=== PATIENT | female | born 1990 | race Caucasian/White ===

== ENCOUNTER 2017-06-29 12:18 | Emergency (ER) | payer MEDICAID ==
--- NOTE | 2017-06-29 12:48 | ER Document Report ---
ED Medical Screen (RME) - General Chief Complaint: Abdominal Pain Stated Complaint: HIT STOMACH 11 WKS PREG Time Seen by Provider: 06/29/17 12:43 Notes: Patient is approximately 11 weeks . She was moving a table which hit the edge of a door and pushed the table into her left abdomen about an hour and a half ago. She has pain to the left side of her abdomen towards the left upper quadrant and she started vomiting soon after this incident occurred. She still points to mid left abdomen as the location of her most pain. No right- sided abdominal pain at all. Has not had any vaginal bleeding. Patient has had vomiting throughout her attributed to the and has some "morning sickness" vomiting this morning prior to this injury. Patient has been diagnosed with systemic lupus and declines to take any antinausea medicines because she is tried them all and they either do not work or she is concerned about the safety (Zofran) based upon TV commercials. Patient does not have any vaginal bleeding. Vital signs are all essentially normal. Abdomen is soft and very minimally tender in the mid left region. I do not see indications for an ultrasound at this time. The patient says that she has a history of a left ovarian cyst and is concerned she may have ruptured it. However, her abdominal exam is not consistent with a ruptured ovarian cyst. TRAVEL OUTSIDE OF THE [place] IN LAST 30 DAYS: No - Related Data Allergies/Adverse Reactions: cefaclor [From Ceclor] Allergy (Severe, Verified 06/29/17 12:22) cardica arrest Penicillins Allergy (Severe, Verified 06/29/17 12:22) Cardiac arrest Home Medications: Current Home Medications Albuterol Sulfate [Proair Respiclick] 90 mcg IH QID 06/29/17 [History] Vit Calc,Iron,Folic [ Vitamins] 1 tab PO DAILY 06/29/17 [ History] Past Medical History - Social History Frequency of alcohol use: Rare Drug Abuse: None Pulmonary Medical History: Reports: Hx Asthma Renal/ Medical History: Denies: Hx Peritoneal Dialysis Musculoskeltal Medical History: Reports Hx Arthritis - RA, Reports Hx Musculoskeletal Deformity - scoliosis Past Surgical History: Reports: Hx Cardiac Surgery, Hx Section, Hx Gynecologic Surgery - D&C, Hx Tonsillectomy - Immunizations Immunizations up to date: Yes Hx Diphtheria, Pertussis, Tetanus Vaccination: Yes - <2 yr Physical Exam - Vital signs Vitals: Temp Pulse Resp BP Pulse Ox 97.9 F 86 18 119/72 100 06/29/17 12:21 06/29/17 12:21 06/29/17 12:21 06/29/17 12:21 06/29/17 12:21 Course - Vital Signs Vital signs: Temp Pulse Resp BP Pulse Ox 97.9 F 86 18 119/72 100 06/29/17 12:21 06/29/17 12:21 06/29/17 12:21 06/29/17 12:21 06/29/17 12:21
[2017-06-29 13:14] LABS: ABSOLUTE BASOPHILS # (AUTO) 0.1 10^3/uL (0.0-0.2); ABSOLUTE EOSINOPHILS # (AUTO) 0.1 10^3/uL (0.0-0.6); ABSOLUTE LYMPHOCYTES (AUTO) 1.9 10^3/uL (0.5-4.7); ABSOLUTE MONOCYTES (AUTO) 0.6 10^3/uL (0.1-1.4); ABSOLUTE NEUT (AUTO) 7.8 10^3/uL (1.7-8.2); BASOPHILS % (AUTO) 0.8 % (0-2); EOSINOPHILS % (AUTO) 1.2 % (0-6); HEMATOCRIT 40.6 % (36.0-47.0); HEMOGLOBIN 13.9 g/dL (12.0-15.5); HGB HCT DIFFERENCE 1.1; LYMPHOCYTES % (AUTO) 17.7 % (13-45); MEAN CORPUSCULAR HGB CONC 34.1 g/dL (32.0-36.0); MEAN CORPUSCULAR VOLUME 91 fl (80-97); MONOCYTES % (AUTO) 5.3 % (3-13); RED BLOOD COUNT 4.48 10^6/uL (3.72-5.28); RED CELL DISTRIBUTION WIDTH 13.1 % (11.5-14.0); WHITE BLOOD COUNT 10.5 10^3/uL (4.0-10.5)
[2017-06-29 13:21] LABS: APPEARANCE,URINE CLEAR; BILIRUBIN,URINE NEGATIVE (NEGATIVE); GLUCOSE, URINE NEGATIVE (NEGATIVE); KETONES,URINE TRACE mg/dL (NEGATIVE); LEUKOCYTE ESTERASE,URINE NEGATIVE (NEGATIVE); NITRITE,URINE NEGATIVE (NEGATIVE); PROTEIN,URINE NEGATIVE (NEGATIVE); URINE SPECIFIC GRAVITY 1.004; UROBILINOGEN,URINE NEGATIVE mg/dL (<2.0)
--- NOTE | 2017-06-29 15:05 | ER Document Report ---
ED General - General Chief Complaint: Abdominal Pain Stated Complaint: HIT STOMACH 11 WKS PREG Time Seen by Provider: 06/29/17 12:43 Mode of Arrival: Ambulatory Information source: Patient Notes: 26-year-old female who is 11 weeks presents with complaints of abdominal pain after striking the side of the table that she was lifting. Patient denies any vaginal bleeding denies any significant pain. Patient is concerned about her . Patient's blood type is O+ and she states with her 3 previous pregnancies she has never received RhoGam TRAVEL OUTSIDE OF THE [place] IN LAST 30 DAYS: No - HPI Onset: Just prior to arrival Onset/Duration: Sudden Quality of pain: Achy Severity: Mild Pain Level: 1 Associated symptoms: Other Exacerbated by: Denies Relieved by: Denies Similar symptoms previously: No Recently seen / treated by doctor: No - Related Data Allergies/Adverse Reactions: cefaclor [From Ceclor] Allergy (Severe, Verified 06/29/17 12:22) cardica arrest Penicillins Allergy (Severe, Verified 06/29/17 12:22) Cardiac arrest Home Medications: Current Home Medications Albuterol Sulfate [Proair Respiclick] 90 mcg IH QID 06/29/17 [History] Vit Calc,Iron,Folic [ Vitamins] 1 tab PO DAILY 06/29/17 [ History] Past Medical History - Social History Smoking Status: Current Some Day Smoker Cigarette use (# per day): Yes Chew tobacco use (# tins/day): No Smoking Education Provided: Yes - Patient counselled regarding cessation for 4 minutes Frequency of alcohol use: Rare Drug Abuse: None Family History: Arthritis, CAD - valve, Hyperlipidemia, Hypertension, Malignancy Patient has suicidal ideation: No Patient has homicidal ideation: No Pulmonary Medical History: Reports: Hx Asthma Renal/ Medical History: Denies: Hx Peritoneal Dialysis Musculoskeltal Medical History: Reports Hx Arthritis - RA, Reports Hx Musculoskeletal Deformity - scoliosis Past Surgical History: Reports: Hx Cardiac Surgery, Hx Section, Hx Gynecologic Surgery - D&C, Hx Tonsillectomy - Immunizations Immunizations up to date: Yes Hx Diphtheria, Pertussis, Tetanus Vaccination: Yes - <2 yr Review of Systems - Review of Systems Notes: REVIEW OF SYSTEMS: CONSTITUTIONAL : Denies fever, chills, or sweats. Denies recent illness. EENT: Denies eye, ear, throat, or mouth pain or symptoms. Denies nasal or sinus congestion or discharge. Denies throat, tongue, or mouth swelling or difficulty swallowing. CARDIOVASCULAR: Denies chest pain. Denies palpitations or racing or irregular heart beat. Denies ankle edema. RESPIRATORY: Denies cough, cold, or chest congestion. Denies shortness of breath, difficulty breathing, or wheezing. GASTROINTESTINAL: Admits to abdominal pain GENITOURINARY: Denies difficulty urinating, painful urination, burning, frequency, blood in urine, or discharge. FEMALE GENITOURINARY: Denies vaginal bleeding, heavy or abnormal periods, irregular periods. Denies vaginal discharge or odor. MUSCULOSKELETAL: Denies back or neck pain or stiffness. Denies joint pain or swelling. SKIN: Denies rash, lesions or sores. HEMATOLOGIC : Denies easy bruising or bleeding. LYMPHATIC: Denies swollen, enlarged glands. NEUROLOGICAL: Denies confusion or altered mental status. Denies passing out or loss of consciousness. Denies dizziness or lightheadedness. Denies headache. Denies weakness or paralysis or loss of use of either side. Denies problems with gait or speech. Denies sensory loss, numbness, or tingling. Denies seizures. PSYCHIATRIC: Denies anxiety or stress. Denies depression, suicidal ideation, or homicidal ideation. ALL OTHER SYSTEMS REVIEWED AND NEGATIVE. PHYSICAL EXAMINATION: GENERAL: Well-appearing, well-nourished and in no acute distress. HEAD: Atraumatic, normocephalic. EYES: Pupils equal round and reactive to light, extraocular movements intact, conjunctiva are normal. ENT: Nares patent, oropharynx clear without exudates. Moist mucous membranes. NECK: Normal range of motion, supple without lymphadenopathy LUNGS: Breath sounds clear to auscultation bilaterally and equal. No wheezes rales or rhonchi. HEART: Regular rate and rhythm without murmurs ABDOMEN: Soft, nontender, nondistended abdomen. No guarding, no rebound. No masses appreciated. Female : deferred Musculoskeletal: Normal range of motion, no pitting or edema. No cyanosis. NEUROLOGICAL: Cranial nerves grossly intact. Normal speech, normal gait. Normal sensory, motor exams PSYCH: Normal mood, normal affect. SKIN: Warm, Dry, normal turgor, no rashes or lesions noted. Dictation was performed using [employer] recognition software Physical Exam - Vital signs Vitals: Temp Pulse Resp BP Pulse Ox 97.9 F 86 18 119/72 100 06/29/17 12:21 06/29/17 12:21 06/29/17 12:21 06/29/17 12:21 06/29/17 12:21 Course - Re-evaluation Re-evalutation: 06/29/17 22:44 Lab work noted no significant abnormality, patient's ultrasound was consistent with a 11 week 5 day heart rate 155, patient overall looks well is in no distress, this is a nonviable at this time and even if there was a threatened miscarriage no intervention could be performed and patient was made aware of this Nonetheless at this time child looks well is in no distress and patient will be discharged home, given that her blood type is O+ she does not require RhoGam After performing a Medical Screening Examination, I estimate there is LOW risk for ACUTE APPENDICITIS, BOWEL OBSTRUCTION, ACUTE CHOLECYSTITIS, PERFORATED DIVERTICULITIS, INCARCERATED HERNIA, PANCREATITIS, PELVIC INFLAMMATORY DISEASE, PERFORATED ULCER, ECTOPIC , or TUBO-OVARIAN ABSCESS, thus I consider the discharge disposition reasonable. Also, there is no evidence or peritonitis , sepsis, or toxicity. I have reevaluated this patient multiple times and no significant life threatening changes are noted. The patient and I have discussed the diagnosis and risks, and we agree with discharging home with close follow-up with the understanding that symptoms and presentations can change. We also discussed returning to the Emergency Department immediately if new or worsening symptoms occur. We have discussed the symptoms which are most concerning (e.g., bloody stool, fever, changing or worsening pain, vomiting) that necessitate immediate return. - Vital Signs Vital signs: Temp Pulse Resp BP Pulse Ox 99.1 F 71 18 102/64 100 06/29/17 15:52 06/29/17 15:52 06/29/17 15:52 06/29/17 15:52 06/29/17 15:52 - Laboratory Result Diagrams: 06/29/17 13:00 Laboratory results interpreted by me: 06/29/17 06/29/17 13:00 13:00 Beta HCG, Quant 51378.00 H Urine Ketones TRACE H - Diagnostic Test Radiology reviewed: Image reviewed, Reports reviewed Discharge - Discharge Clinical Impression: Abdominal pain affecting Condition: Stable Disposition: HOME, SELF-CARE Instructions: Abdominal Pain ([facility]) Additional Instructions: Follow up with your physician tomorrow for further care or return to the ED IMMEDIATELY if symptoms worsen or new concerns occur. If you cannot afford to follow up with your primary care physician a list of low cost clinics have been provided at the end of your discharge papers as well. Referrals: REX ZALDIVAR NP-C [Primary Care Provider] - Follow up as needed
--- NOTE | 2017-06-29 15:14 | RADIOLOGY REPORT (SQ) ---
EXAM DESCRIPTION: U/S [id number] TRNABD 1GES W/ODOP COMPLETED DATE/TIME: 06/29/2017 3:03 pm REASON FOR STUDY: 11 week old, abd pain COMPARISON: None. TECHNIQUE: Transabdominal static and realtime grayscale images acquired of the pelvis. Additional se lected spectral and color Doppler images recorded. All images stored on PACs. bHCG: Not available. LIMITATIONS: None. FINDINGS: FETUS: Living intrauterine . EGA: 11 weeks 5 days ELIEZER: 01/13/2018 FHR: 155 beats per minute. SUBCHORIONIC BLEED: No significant subchorionic hemorrhage is seen. SIZE OF BLEED: Not applicable. UTERUS: No masses. No anomalies. CERVICAL LENGTH: 2.3 cm. Closed. RIGHT ADNEXA: Normal ovary with normal vascular flow. 2.2 x 1.8 x 1.8 cm. No adnexal free fluid. No adnexal masses. LEFT ADNEXA: Normal ovary with normal vascular flow. 2.1 x 2.2 x 1.6 cm. No adnexal free fluid. No adnexal masses. FREE FLUID: None. OTHER: No other significant finding. IMPRESSION: LIVING INTRAUTERINE . EGA 11 weeks 5 days Trimester of : First - 0 to 13 weeks. TECHNICAL DOCUMENTATION: JOB ID: [id number] [employer]- All Rights Reserved
[2017-06-29 15:53] VITALS: BP 102/64
== END 2017-06-29 15:52 | disposition home or self-care (01) ==
LOC: ER 12:18
DX: O26.91 Pregnancy related conditions, unspecified, first trimester (principal); R10.9 Unspecified abdominal pain; O99.331 Smoking (tobacco) complicating pregnancy, first trimester; F17.210 Nicotine dependence, cigarettes, uncomplicated; Z3A.11 11 weeks gestation of pregnancy; Z88.0 Allergy status to penicillin
CPT/HCPCS: 36415; 76801; 81001; 84702; 85025; 99284

== ENCOUNTER 2019-09-30 20:42 | Emergency (ER) | payer MEDICAID ==
[2019-09-30] MEDS ORDERED: ONDANSETRON 4 MG TAB.RAPDIS PO ONE (21:17)
[2019-09-30] MEDS ORDERED: HYDROCODONE/ACETAMINOPHEN 5-325 MG TABLET PO ONE (21:18)
--- NOTE | 2019-09-30 21:22 | ER Document Report ---
ED Medical Screen (RME) - General Stated Complaint: ABDOMINAL PAIN Time Seen by Provider: 09/30/19 21:11 Primary Care Provider: REX ZALDIVAR NP-C [Primary Care Provider] - Follow up as needed Notes: Patient is a 29-year-old female who presents emergency department with a chief complaint of upper abdominal pain. Patient states that she has had her symptoms on and off for the past 6 months. States it feels like she has a "boa constrict or around my upper abdomen" and is "squeezing her." She admits to losing about 20 pounds unintentionally due to the nausea and vomiting. Patient is supposed to follow-up with GI, but is waiting for the referral. Exam: Tender mid upper abdomen. I have greeted and performed a rapid initial assessment of this patient. A comprehensive ED assessment and evaluation of the patient, analysis of test results and completion of medical decision making process will be conducted by an additional ED providers. TRAVEL OUTSIDE OF THE [place] IN LAST 30 DAYS: No - Related Data Allergies/Adverse Reactions: cefaclor [From Ceclor] Allergy (Severe, Verified 06/29/17 12:22) cardica arrest Penicillins Allergy (Severe, Verified 06/29/17 12:22) Cardiac arrest Past Medical History Pulmonary Medical History: Reports: Hx Asthma Renal/ Medical History: Denies: Hx Peritoneal Dialysis Musculoskeltal Medical History: Reports Hx Arthritis - RA, Reports Hx Musculoskeletal Deformity - scoliosis Past Surgical History: Reports: Hx Cardiac Surgery, Hx Section, Hx Gynecologic Surgery - D&C, Hx Tonsillectomy - Immunizations Immunizations up to date: Yes Hx Diphtheria, Pertussis, Tetanus Vaccination: Yes - <2 yr Physical Exam - Vital signs Vitals: Temp Pulse Resp BP Pulse Ox 98.1 F 77 20 121/77 100 09/30/19 20:45 09/30/19 20:45 09/30/19 20:45 09/30/19 20:45 09/30/19 20:45 Course - Vital Signs Vital signs: Temp Pulse Resp BP Pulse Ox 98.1 F 77 20 121/77 100 09/30/19 20:45 09/30/19 20:45 09/30/19 20:45 09/30/19 20:45 09/30/19 20:45 Doctor's Discharge - Discharge Referrals: KAYLEY,REX, CHEESE GRADER-C [Primary Care Provider] - Follow up as needed
--- NOTE | 2019-09-30 22:11 | RADIOLOGY REPORT (SQ) ---
EXAM DESCRIPTION: US ABDOMEN LIMITED COMPLETED DATE/TME: 09/30/2019 21:18 CLINICAL HISTORY: 29 years, Female, abdominal pain Findings: Aorta and IVC are within normal limits. Pancreas is within normal limits. Liver is within normal limits with no focal lesions. Portal vein is patent with hepatopedal flow. Gallbladder is contracted and appears unremarkable with no evidence for calculus, wall thickening or pericholecystic fluid. No significant biliary dilatation with CBD measuring 5 mm. No right hydronephrosis. No right upper quadrant ascites. IMPRESSION: No evidence for cholelithiasis or cholecystitis.
[2019-09-30 23:18] LABS: ABSOLUTE BASOPHILS # (AUTO) 0.1 10^3/uL (0.0-0.2); ABSOLUTE EOSINOPHILS # (AUTO) 0.3 10^3/uL (0.0-0.6); ABSOLUTE LYMPHOCYTES (AUTO) 2.4 10^3/uL (0.5-4.7); ABSOLUTE MONOCYTES (AUTO) 0.7 10^3/uL (0.1-1.4); ABSOLUTE NEUT (AUTO) 9.4 10^3/uL (1.7-8.2); APPEARANCE,URINE CLEAR; BASOPHILS % (AUTO) 0.6 % (0-2); BILIRUBIN,URINE NEGATIVE (NEGATIVE); COLOR,URINE YELLOW; EOSINOPHILS % (AUTO) 2.1 % (0-6); GLUCOSE, URINE NEGATIVE (NEGATIVE); HEMATOCRIT 39.1 % (36.0-47.0); HEMOGLOBIN 13.4 g/dL (12.0-15.5); KETONES,URINE NEGATIVE (NEGATIVE); LEUKOCYTE ESTERASE,URINE NEGATIVE (NEGATIVE); LYMPHOCYTES % (AUTO) 18.4 % (13-45); MEAN CORPUSCULAR HEMOGLOBIN 31.2 pg (27.0-33.4); MEAN CORPUSCULAR HGB CONC 34.3 g/dL (32.0-36.0); MEAN CORPUSCULAR VOLUME 91 fl (80-97); MONOCYTES % (AUTO) 5.5 % (3-13); NITRITE,URINE NEGATIVE (NEGATIVE); PLATELET COUNT 257 10^3/uL (150-450); PROTEIN,URINE NEGATIVE (NEGATIVE); RED BLOOD COUNT 4.29 10^6/uL (3.72-5.28); RED CELL DISTRIBUTION WIDTH 13.1 % (11.5-14.0); SEGMENTED NEUTROPHILS % (AUTO) 73.4 % (42-78); TOTAL CELLS COUNTED % (AUTO) 100 %; URINE SPECIFIC GRAVITY 1.006; UROBILINOGEN,URINE NEGATIVE mg/dL (<2.0); WHITE BLOOD COUNT 12.9 10^3/uL (4.0-10.5)
[2019-09-30 23:32] LABS: ALBUMIN 4.2 g/dL (3.5-5.0); ALKALINE PHOSPHATASE 90 U/L (38-126); ANION GAP 9 (5-19); ASPARTATE AMINO TRANSFERASE 20 U/L (14-36); BILIRUBIN,DIRECT 0.3 mg/dL (0.0-0.4); BILIRUBIN,TOTAL 0.3 mg/dL (0.2-1.3); BLOOD UREA NITROGEN 8 mg/dL (7-20); CALCIUM 9.6 mg/dL (8.4-10.2); CARBON DIOXIDE 26 mmol/L (22-30); CHLORIDE 104 mmol/L (98-107); GLUCOSE 90 mg/dL (75-110); POTASSIUM 4.3 mmol/L (3.6-5.0); TOTAL PROTEIN 7.1 g/dL (6.3-8.2)
[2019-10-01] MEDS ORDERED: HYDROCODONE/ACETAMINOPHEN 5-325 MG (6 TAB/ER DISP) PO PRN (03:53)
--- NOTE | 2019-10-01 03:58 | ER Document Report ---
ED GI/ - General Chief Complaint: Abdominal Pain Stated Complaint: ABDOMINAL PAIN Time Seen by Provider: 09/30/19 21:11 Primary Care Provider: [facility] [Provider Group] - Follow up as needed CHERRY PARKS MD [ACTIVE STAFF] - Follow up tomorrow Notes: Patient is a 29-year-old female that comes to the emergency department for chief complaint of upper abdominal pain. She states that for the past 2 months she has intermittent symptoms of sharp squeezing pain in the upper abdomen especially after eating, she has noticed this would be for the most. She states that she has been eating less and has been losing weight as a result. She denies vomiting, black or bloody stools, fever. She states she has a history of lupus on no medications and C-sections. She denies daily medications but takes Midol and ibuprofen frequently, she admits to very frequent caffeine, denies recreational drugs except marijuana. TRAVEL OUTSIDE OF THE [place] IN LAST 30 DAYS: No - Related Data Allergies/Adverse Reactions: cefaclor [From Ceclor] Allergy (Severe, Verified 06/29/17 12:22) cardica arrest Penicillins Allergy (Severe, Verified 06/29/17 12:22) Cardiac arrest Past Medical History - General Information source: Patient - Social History Smoking Status: Current Every Day Smoker Frequency of alcohol use: Occasional Drug Abuse: None Lives with: Family Family History: Arthritis, CAD - valve, Hyperlipidemia, Hypertension, Malignancy Patient has suicidal ideation: No Patient has homicidal ideation: No Pulmonary Medical History: Reports: Hx Asthma Renal/ Medical History: Denies: Hx Peritoneal Dialysis Musculoskeletal Medical History: Reports Hx Arthritis - RA, Reports Hx Musculoskeletal Deformity - scoliosis Past Surgical History: Reports: Hx Cardiac Surgery, Hx Section, Hx Gynecologic Surgery - D&C, Hx Tonsillectomy - Immunizations Immunizations up to date: Yes Hx Diphtheria, Pertussis, Tetanus Vaccination: Yes - <2 yr Review of Systems - Review of Systems Constitutional: No symptoms reported EENT: No symptoms reported Cardiovascular: No symptoms reported Respiratory: No symptoms reported Gastrointestinal: See HPI Genitourinary: No symptoms reported Female Genitourinary: No symptoms reported Musculoskeletal: No symptoms reported Skin: No symptoms reported Hematologic/Lymphatic: No symptoms reported Neurological/Psychological: No symptoms reported Physical Exam - Vital signs Vitals: Temp Pulse Resp BP Pulse Ox 98.1 F 77 20 121/77 100 09/30/19 20:45 09/30/19 20:45 09/30/19 20:45 09/30/19 20:45 09/30/19 20:45 - Notes Notes: GENERAL: Alert, interacts well. No acute distress. Thin patient HEAD: Normocephalic, atraumatic. EYES: Pupils equal, round, and reactive to light. Extraocular movements intact. ENT: Oral mucosa moist, tongue midline. Oropharynx unremarkable. Airway patent. LUNGS: Clear to auscultation bilaterally, no wheezes, rales, or rhonchi. No respiratory distress. HEART: Regular rate and rhythm. No murmur ABDOMEN: Soft, non-tender. Non-distended. EXTREMITIES: Moves all 4 extremities spontaneously. No edema, normal radial and dorsalis pedis pulses bilaterally. No cyanosis. BACK: no cervical, thoracic, lumbar midline tenderness. No saddle anesthesia, normal distal neurovascular exam. Moves all extremities in full range of motion. NEUROLOGICAL: Alert and oriented x3. Normal speech. Cranial nerves II through XII grossly intact. PSYCH: Normal affect, normal mood. SKIN: Warm, dry, normal turgor. No rashes or lesions noted. Course - Re-evaluation Re-evalutation: Patient is well-appearing. Her abdomen is soft and benign. She does not have current symptoms. Ultrasound shows no acute findings or concerning abnormality. CBC, chemistry, lipase, urinalysis unremarkable. test negative. test not performed by triage but patient denies with recent LMP. She is ready to leave, unfortunately had waited a very long time to be seen. She is tolerating p.o. without difficulty. Patient has multiple reasons for her to have gastritis and esophagitis, however her specific descriptions are suggestive of gallbladder dyskinesis. She also states that when it hurts she takes NSAIDs and this can resolve the symptoms consistently. I recommended a HIDA scan, she requests primary care follow-up for changing her current 1, this was provided. Surgical clinic referral also provided on request. Discussed expectations and return precautions. Patient states understanding and agreement. Stable at time of discharge. - Vital Signs Vital signs: Temp Pulse Resp BP Pulse Ox 97.9 F 70 20 110/68 98 10/01/19 04:13 10/01/19 04:13 10/01/19 04:13 10/01/19 04:13 10/01/19 04:13 - Laboratory Result Diagrams: 09/30/19 22:57 09/30/19 22:57 Laboratory results interpreted by me: 09/30/19 09/30/19 22:57 22:57 WBC 12.9 H Absolute Neuts (auto) 9.4 H Urine Blood MODERATE H Discharge - Discharge Clinical Impression: Epigastric pain Condition: Stable Disposition: HOME, SELF-CARE Additional Instructions: Your ultrasound looks normal. Your laboratory work-up does not show any concerning findings. Your symptoms and work-up are most suggestive of gallbladder dyskinesis. You need a HIDA scan, if this is abnormal follow-up with the surgical clinic referral. There is also a possibility that this is inflammation of the upper gastrointestinal tract. I do recommend you take Phenergan for nausea, take Carafate and Pepcid as prescribed to help treat this, you can take additional Rolaids, Tums, Maalox, etc. if needed. You can take Tylenol for pain. Avoid NSAIDs, alcohol, smoking, caffeine, spicy food. Follow-up with primary care your additional testing and treatment. Return if you worsen including uncontrolled vomiting, vomiting blood, black stools, severe pain, fever of 100.4 or greater, or any other concerning or worsening symptoms. Prescriptions: Sucralfate [Carafate 1 gm Tablet] 1 gm PO QID #20 tablet Famotidine [Pepcid 20 mg Tablet] 20 mg PO BID #20 tablet Promethazine HCl [Phenergan 25 mg Tablet] 25 mg PO Q6H PRN #15 tablet PRN Reason: Forms: Return to Work Referrals: CHERRY PARKS MD [ACTIVE STAFF] - Follow up tomorrow [facility] [Provider Group] - Follow up as needed
[2019-10-01 04:15] VITALS: BP 110/68
== END 2019-10-01 04:13 | disposition home or self-care (01) ==
LOC: ER 20:42
DX: R10.13 Epigastric pain (principal); R10.10 Upper abdominal pain, unspecified; F17.200 Nicotine dependence, unspecified, uncomplicated; J45.909 Unspecified asthma, uncomplicated; Z88.0 Allergy status to penicillin
CPT/HCPCS: 36415; 76705; 80053; 81001; 83690; 85025; 99284

== ENCOUNTER → 2019-10-07 | Outpatient (CLI) | payer MEDICAID ==
--- NOTE | 2019-10-07 14:30 | RADIOLOGY REPORT (SQ) ---
EXAM DESCRIPTION: NM HIDA SCAN WITH CCK COMPLETED DATE/TIME: 10/07/2019 2:03 pm REASON FOR STUDY: (R10.13)EPIGASTRIC PAIN R10.13 EPIGASTRIC PAIN COMPARISON: None. RADIONUCLIDE AND DOSE: DOSAGE RADIONUCLIDE: 5.46 millicuries Tc99m Mebrofenin. DOSAGE CCK: 1.0 micrograms. DOSAGE MORPHINE: Not required. The route of agent administration: Intravenous TECHNIQUE: Serial imaging right upper quadrant up to 60 minutes following injection of radionuclide. CCK injected after gallbladder visualized. LIMITATIONS: After administration of CCK, there was a large amount of progressive activity in the sm all bowel. This obscured the gallbladder and therefore an ejection fraction could not be calculated. FINDINGS: LIVER: Normal visualization without areas of photopenia. INTRAHEPATIC BILE DUCTS: Normal size and no delay in visualization. COMMON BILE DUCT: Normal without dilatation. GALLBLADDER: Normal visualization. PHYSICAL RESPONSE: Patients presenting complaint was not reproduced. OTHER: No other significant finding. IMPRESSION: NORMAL STUDY WITHOUT CYSTIC OR COMMON DUCT OBSTRUCTION. UNABLE TO CALCULATE A GALLBLADD ER EJECTION FRACTION BECAUSE A LARGE AMOUNT OF ACTIVITY IN THE SMALL BOWEL OBSCURED THE GALLBLADDER. IF THE STUDY NEEDS TO BE REPEATED, THEN MAY TRY IMAGING THE PATIENT WITH THE HEAD AND UPPER BODY BALTA VATED TO ATTEMPT TO ALLOW THE SMALL BOWEL TO DESCEND LOWER THAN THE LEVEL OF THE GALLBLADDER. TECHNICAL DOCUMENTATION: JOB ID: [id number] 2010 [employer]- All Rights Reserved Reading location - IP/workstation name: [email or web address]
== END ==
LOC: RAD 10:56
PROVIDERS: ATTEND Nurse Practitioner Family
DX: R10.13 Epigastric pain (principal)
CPT/HCPCS: 78227; J2805; A9537; Q9969

== ENCOUNTER → 2019-10-27 | Outpatient (CLI) | payer MEDICAID ==
--- NOTE | 2019-10-27 11:52 | RADIOLOGY REPORT (SQ) ---
EXAM DESCRIPTION: NM HIDA SCAN WITH CCK COMPLETED DATE/TIME: 10/27/2019 10:47 am REASON FOR STUDY: ABDOMINAL PAIN R10.9 UNSPECIFIED ABDOMINAL PAIN COMPARISON: None. RADIONUCLIDE AND DOSE: DOSAGE RADIONUCLIDE: 5 millicuries Tc99m Mebrofenin. DOSAGE CCK: 1 micrograms. DOSAGE MORPHINE: Not required. The route of agent administration: Intravenous TECHNIQUE: Serial imaging right upper quadrant up to 60 minutes following injection of radionuclide. CCK injected after gallbladder visualized. LIMITATIONS: None. FINDINGS: LIVER: Normal visualization without areas of photopenia. INTRAHEPATIC BILE DUCTS: Normal size and no delay in visualization. COMMON BILE DUCT: Normal without dilatation. GALLBLADDER: Normal visualization. Calculated ejection fraction of 58%. Normal range is greater th an 35%. PHYSICAL RESPONSE: Patients presenting complaint was reproduced. OTHER: No other significant finding. IMPRESSION: Normal gallbladder ejection fraction of 58%. Patient's symptoms were reproduced with CC K administration. TECHNICAL DOCUMENTATION: JOB ID: [id number] 2010 [employer]- All Rights Reserved Reading location - IP/workstation name: [email or web address]
== END ==
LOC: RAD 08:22
PROVIDERS: ATTEND Surgery
DX: R10.9 Unspecified abdominal pain (principal)
CPT/HCPCS: 78227; J2805; A9537; Q9969

== ENCOUNTER 2020-02-22 17:57 | Emergency (ER) | payer MEDICAID ==
[2020-02-22 18:06] VITALS: BP 94/68
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
--- NOTE | 2020-02-22 19:02 | RADIOLOGY REPORT (SQ) ---
EXAM DESCRIPTION: WRIST LEFT 3 VIEWS IMAGES COMPLETED DATE/TIME: 02/22/2020 6:46 pm REASON FOR STUDY: injury COMPARISON: None. NUMBER OF VIEWS: Three views. TECHNIQUE: AP, lateral, and oblique radiographic images acquired of the left wrist. LIMITATIONS: None. FINDINGS: MINERALIZATION: Normal. BONES: No acute fracture or dislocation. No worrisome bone lesions. Normal alignment. SOFT TISSUES: No soft tissue swelling. No foreign body. OTHER: No other significant finding. IMPRESSION: NEGATIVE STUDY OF THE LEFT WRIST. NO RADIOGRAPHIC EVIDENCE OF ACUTE INJURY. TECHNICAL DOCUMENTATION: JOB ID: [id number] 2010 [employer]- All Rights Reserved Reading location - IP/workstation name: [email or web address]
--- NOTE | 2020-02-22 19:02 | RADIOLOGY REPORT (SQ) ---
EXAM DESCRIPTION: FOREARM LEFT COMPLETED DATE/TIME: 02/22/2020 6:46 pm REASON FOR STUDY: injury COMPARISON: None. NUMBER OF VIEWS: Two views. TECHNIQUE: Two radiographic images acquired of the left forearm, including elbow and wrist in at rod st one projection. LIMITATIONS: None. FINDINGS: MINERALIZATION: Normal. BONES: No acute fracture. No worrisome bone lesions. SOFT TISSUES: No obvious swelling or foreign body. OTHER: No other significant finding. IMPRESSION: NEGATIVE STUDY OF THE LEFT FOREARM. NO RADIOGRAPHIC EVIDENCE OF ACUTE INJURY. TECHNICAL DOCUMENTATION: JOB ID: [id number] 2010 [employer]- All Rights Reserved Reading location - IP/workstation name: [email or web address]
== END 2020-02-22 19:24 | disposition home or self-care (01) ==
LOC: ER 17:57
DX: S50.12XA Contusion of left forearm, initial encounter (principal); S63.502A Unspecified sprain of left wrist, initial encounter; F17.200 Nicotine dependence, unspecified, uncomplicated; V93.32XA Fall on board fishing boat, initial encounter
CPT/HCPCS: 99283

== ENCOUNTER 2020-08-11 17:39 | Emergency (ER) | payer MEDICAID ==
[2020-08-11 18:07] VITALS: BP 116/62
[2020-08-11] MEDS ORDERED: IBUPROFEN 400 MG TABLET PO ONE (20:02)
--- NOTE | 2020-08-11 20:06 | ER Document Report ---
HPI - HPI Patient complains to provider of: right ear pain Time Seen by Provider: 08/11/20 19:56 Pain Level: 3 Context: 30-year-old female presents to the emergency room complaining of right ear pain that started earlier today. States pain is radiating into her jaw. Patient states she was seen here a week ago and diagnosed with a left ear infection and was given eardrops. States she put the eardrops in her right ear this morning she immediately started having worsening pain and feels pressure below her right ear. Denies any recent trauma or injury. No recent swimming or flying. Denies any use of Q-tips. Did not take anything for pain. Denies any chance of . Associated Symptoms: None Exacerbated by: Other - Touching of her right ear. Relieved by: Denies Similar symptoms previously: No Recently seen / treated by doctor: No - ROS Systems Reviewed and Negative: Yes All other systems reviewed and negative - CONSTITUTIONAL Constitutional: DENIES: Fever, Chills - EENT EENT: REPORTS: Ear Pain - NEURO Neurology: DENIES: Headache, Weakness - REPRODUCTIVE Reproductive: DENIES: : - DERM Skin Color: Normal Skin Problems: None Past Medical History - General Information source: Patient - Social History Smoking Status: Current Every Day Smoker Frequency of alcohol use: None Drug Abuse: None Family History: Arthritis, CAD, Hyperlipidemia, Hypertension, Malignancy Patient has homicidal ideation: No Pulmonary Medical History: Reports: Hx Asthma Renal/ Medical History: Denies: Hx Peritoneal Dialysis Musculoskeletal Medical History: Reports Hx Arthritis - RA, Reports Hx Musculoskeletal Deformity - scoliosis, Reports Hx Systemic Lupus Erythematosus Past Surgical History: Reports: Hx Cardiac Surgery, Hx Section, Hx Gynecologic Surgery - D&C, Hx Tonsillectomy - Immunizations Immunizations up to date: Yes Hx Diphtheria, Pertussis, Tetanus Vaccination: Yes - <2 yr Vertical Provider Document - CONSTITUTIONAL Agree With Documented VS: Yes Exam Limitations: No Limitations General Appearance: Moderate Distress - INFECTION CONTROL TRAVEL OUTSIDE OF THE [place] IN LAST 30 DAYS: No - HEENT HEENT: Atraumatic, Normocephalic. negative: Pharyngeal Exudate, Pharyngeal Tenderness, Pharyngeal Erythema, Tympanic Membrane Red, Tympanic Membrane Bulging Notes: Right outer ear canal with swelling and erythema. Right tympanic membrane intact without bulging or erythema. Left tympanic membrane intact without erythema or bulging. Left outer ear canal without erythema or swelling. Tenderness on palpation to the right preauricular lymphadenopathy. - NECK Neck: Normal Inspection, Supple, Thyroid Normal. negative: Lymphadenopathy- Left, Lymphadenopathy-Right - RESPIRATORY Respiratory: Breath Sounds Normal, No Respiratory Distress, Chest Non-Tender - CARDIOVASCULAR Cardiovascular: Regular Rate, Regular Rhythm, No Murmur - NEURO Level of Consciousness: Awake, Alert, Appropriate Motor/Sensory: No Motor Deficit, No Sensory Deficit - DERM Integumentary: Warm, Dry, No Rash Course - Re-evaluation Re-evalutation: 08/11/20 20:03 Patient was counseled on diagnosis. Tylenol and or Motrin as needed for pain. Patient requested different eardrops then what she was prescribed back on July 16.. Patient is requesting Ciprodex which she states she has used in the past for her ear infections which she states works better for her. Counseled to use eardrops as prescribed. Outpatient follow-up with ENT if not improving in 2 to 3 days. On-call physician was provided. Patient was given strict return to the emergency room guidelines. Return for any new or worsening symptoms. All questions were answered. Patient verbalized understanding and agrees with plan of care. 08/11/20 20:22 - Vital Signs Vital signs: Temp Pulse Resp BP Pulse Ox 98.9 F 92 16 116/62 100 08/11/20 18:05 08/11/20 18:05 08/11/20 18:05 08/11/20 18:05 08/11/20 18:05 - Laboratory Results Critical Laboratory Results Reviewed: No Critical Results - Radiology Results Critical Radiology Results Reviewed: No Critical Results Discharge - Discharge Clinical Impression: Right otitis externa Qualifiers: Otitis externa type: unspecified type Chronicity: acute Qualified Code(s): H60.501 - Unspecified acute noninfective otitis externa, right ear Condition: Stable Disposition: HOME, SELF-CARE Instructions: Use of Ear Drops ([facility]), Otitis Externa ([facility]) Additional Instructions: Tylenol and or Motrin as needed for pain. Outpatient follow-up with ENT if not improving in 2 to 3 days. Return to the emergency room for any new or worsening symptoms. Prescriptions: Ciprofloxacin HCl/Dexameth [Ciprodex Otic Suspension] 4 drop OT BID 7 Days #1 bottle Referrals: JEFF,MAYLIN, DO [Primary Care Provider] - Follow up as needed LIZETTE BABIN, [ASSOCIATE] - Follow up as needed
== END 2020-08-11 20:08 | disposition home or self-care (01) ==
LOC: ER 17:39
DX: H60.501 Unspecified acute noninfective otitis externa, right ear (principal); H92.01 Otalgia, right ear; F17.200 Nicotine dependence, unspecified, uncomplicated; J45.909 Unspecified asthma, uncomplicated
CPT/HCPCS: 99283